=== PATIENT | female | born 1995 | race American Indian/Alaskan Native ===

== ENCOUNTER 2016-09-19 21:51 | Emergency (ER) | payer MEDICAID ==
[2016-09-20 00:45] LABS: Bilirubin,Urine NEG (Negative); Blood,Urine NEG (Negative); Ketones,Urine TR mg/dL (Negative); Leukocyte Esterase,Urine NEG (Negative); Mucus,Urine 3+ /HPF; Nitrite,Urine NEG (Negative); Protein,Urine <15 mg/dL mg/dL (Negative); RBC,Urine < 1.0 /HPF (0.0-6.0); Urobilinogen,Urine < 2.0 mg/dL (<2.0)
[2016-09-20] MEDS ORDERED: NACL 0.9% 1000 ML 1,000 ML IV ONE (01:09)
[2016-09-20] MEDS ORDERED: ZOFRAN IV ONE (01:09)
[2016-09-20] MEDS ORDERED: TYLENOL PO ONE (01:10)
--- NOTE | 2016-09-20 02:06 | Emergency Department Report ---
ED N/V/D HPI - General Chief complaint: Pain General Stated complaint: PREG 8WKS/VOMITING/BODY ACHES Time Seen by Provider: 09/20/16 00:35 Source: patient, family Mode of arrival: Ambulatory Limitations: No Limitations - History of Present Illness Initial comments: Patient here reports she is 8 weeks and she started having body aches unable to follow down. Nausea and vomiting. Patient stated that she had 1 diarrhea stool today. She last vomited 1 hour prior to coming to the emergency room for a total of 3 times today. Patient says she does not have an appetite and her body is a candidate 5 out of 10. She denies any fever or chills. Denies any abdominal or back pain. She said her muscles feel achy 5 out of 10. Reports nasal congestion and sore throat. Denies cough, shortness of breath or chest pain. No [id number] medication taken for pain but she went Diclegis for nausea. I'll remember if he ate anything unusual over the same as before she started having nausea. Similar episode since her . [facility] and she said she went on August 26, 2016 and had ultrasound and reported that her is normal. She denies any vaginal bleeding or discharge. She states that she got checked for STD with her first visit. She states she does not have any STD or any concerns for STD. Urinary burning, frequency or urgency. MD complaint: nausea, vomiting, diarrhea -: This morning Description of Vomiting: food contents Description of Diarrhea: other (loose) Associated Abdominal Pain: No Severity: moderate Pain Scale: 5 (body aches) Quality: aching Improves with: rest Worsens with: none Context: other (unknown) Associated Symptoms: myalgias, loss of appetite, nausea/vomiting. denies: chest pain, cough, diaphoresis, fever/chills, headaches, malaise, rash, dysuria , shortness of breath, syncope, weakness - Related Data Previous Rx's Medication Instructions Recorded Last Taken Type Acetaminophen [Non-Aspirin Pain 500 mg PO Q8H PRN #12 tablet 09/20/16 Unknown Rx Relief] Sodium Chloride [Saline Nasal 90 ml NS Q12H PRN #1 spray 09/20/16 Unknown Rx [place]] guaiFENesin [Mucinex] 600 mg PO Q12H #10 tab.er.12h 09/20/16 Unknown Rx Allergies Allergy/AdvReac Type Severity Reaction Status Date / Time No Known Allergies Allergy Unverified 09/19/16 22:22 ED Review of Systems ROS: Stated complaint: PREG 8WKS/VOMITING/BODY ACHES Other details as noted in HPI Comment: All other systems reviewed and negative Constitutional: denies: chills, fever Eyes: denies: eye pain ENT: throat pain, congestion. denies: ear pain Respiratory: denies: cough, shortness of breath, SOB with exertion, SOB at rest , stridor, wheezing Cardiovascular: denies: chest pain, palpitations, edema, syncope Gastrointestinal: nausea, vomiting, diarrhea. denies: abdominal pain, constipation Genitourinary: denies: urgency, dysuria, frequency, hematuria, discharge Musculoskeletal: myalgia. denies: back pain, arthralgia Skin: denies: rash Neurological: denies: headache, weakness, numbness, paresthesias, confusion, abnormal gait, vertigo ED Past Medical Hx - Past Medical History Previous Medical History?: No - Surgical History Past Surgical History?: No - Family History Family history: no significant - Social History Smoking Status: Never Smoker Substance Use Type: None - Medications Home Medications: Home Medications Medication Instructions Recorded Confirmed Last Taken Type Acetaminophen [Non-Aspirin Pain 500 mg PO Q8H PRN #12 tablet 09/20/16 Unknown Rx Relief] Sodium Chloride [Saline Nasal 90 ml NS Q12H PRN #1 spray 09/20/16 Unknown Rx [place]] guaiFENesin [Mucinex] 600 mg PO Q12H #10 tab.er.12h 09/20/16 Unknown Rx ED Physical Exam - General Limitations: No Limitations General appearance: alert, in no apparent distress - Head Head exam: Present: atraumatic, normocephalic, normal inspection - Eye Eye exam: Present: normal appearance, PERRL, EOMI. Absent: scleral icterus, conjunctival injection, periorbital swelling, periorbital tenderness Pupils: Present: normal accommodation - ENT ENT exam: Present: normal exam, normal orophraynx, mucous membranes moist, normal external ear exam, other (Bilateral nasal mucosa erythema and congestion with clear drainage. No frontal or maxillar sinus tenderness). Absent: TM's normal bilaterally (bilateral TM congestion without erythema) - Neck Neck exam: Present: normal inspection, tenderness, full ROM. Absent: meningismus, lymphadenopathy - Respiratory Respiratory exam: Present: normal lung sounds bilaterally. Absent: respiratory distress, wheezes, rales, rhonchi, stridor, chest wall tenderness - Cardiovascular Cardiovascular Exam: Present: normal rhythm, tachycardia, normal heart sounds - GI/Abdominal GI/Abdominal exam: Present: soft, normal bowel sounds. Absent: distended, tenderness, guarding, rebound, rigid - Extremities Exam Extremities exam: Present: normal inspection, full ROM, normal capillary refill. Absent: tenderness, pedal edema, joint swelling, calf tenderness - Back Exam Back exam: Present: normal inspection, full ROM. Absent: tenderness, CVA tenderness (R), CVA tenderness (L), muscle spasm, paraspinal tenderness, vertebral tenderness, rash noted - Neurological Exam Neurological exam: Present: alert, oriented X3, normal gait, reflexes normal. Absent: motor sensory deficit - Psychiatric Psychiatric exam: Present: normal affect, normal mood - Skin Skin exam: Present: warm, dry, intact, normal color. Absent: rash ED Course Vital Signs 09/19/16 09/20/16 09/20/16 22:22 01:31 02:37 Temperature 99.6 F 98.2 F Pulse Rate 102 H 102 H Respiratory 16 18 20 Rate Blood Pressure 121/80 Blood Pressure 106/70 [Left] O2 Sat by Pulse 99 100 Oximetry 09/20/16 02:57 Temperature Pulse Rate 94 H Respiratory Rate Blood Pressure Blood Pressure [Left] O2 Sat by Pulse Oximetry - Reevaluation(s) Reevaluation #1: 09/20/16 02:31 1 liter IV fluid in emergency room for nausea vomiting and diarrhea. No episode of vomiting or diarrhea in the emergency room. Se was given Zofran 4 mg IV for nausea and Tylenol 650 mg by mouth for low-grade fever. oral challenge in the emergency room and tolerated 3 cups of apple juice without any nausea or vomiting. Reports that she is feeling better. ED Medical Decision Making - Lab Data Lab Results 09/20/16 Range/Units 00:10 Urine Color Yellow (Yellow) Urine Turbidity Clear (Clear) Urine pH 6.0 (5.0-7.0) Ur Specific [place] 1.023 (1.003-1.030) Urine Protein <15 mg/dl (Negative) mg/dL Urine Glucose (UA) Neg (Negative) mg/dL Urine Ketones Tr (Negative) mg/dL Urine Blood Neg (Negative) Urine Nitrite Neg (Negative) Urine Bilirubin Neg (Negative) Urine Urobilinogen < 2.0 (<2.0) mg/dL Ur Leukocyte Esterase Neg (Negative) Urine WBC (Auto) 2.0 (0.0-6.0) /HPF Urine RBC (Auto) < 1.0 (0.0-6.0) /HPF U Epithel Cells (Auto) 2.0 (0-13.0) /HPF Urine Mucus 3+ /HPF Urine HCG, Qual Positive A (Negative) Strep test negative and cultures are pending - Medical Decision Making ED Course: Patient instructed that her urine test was stable except for mild dehydration. Positive and strep test is negative .Patient here for nausea vomiting and diarrhea that started this morning .She Reports that she is 8 weeks and she has been followed at [facility]. She said her last ultrasound was in August 2016 and everything was fine with the baby. She received 1 liter IV fluid in emergency room for nausea vomiting and diarrhea. No episode of vomiting or diarrhea in the emergency room. Se was given Zofran 4 mg IV for nausea and Tylenol 650 mg by mouth for low-grade fever. She was oral challenge in the emergency room and tolerated 3 cups of apple juice without any nausea or vomiting. Reports that she is feeling better. I instructed her that she needs to call her [facility] clinic to let them know that she was in the emergency room on follow up with her [facility] in 1 days. Instructed to obtain sure she drinks plenty of fluid to prevent from getting dehydrated and she can take Tylenol plain 3 times a day to keep fever down and to help for body ache. I discussed with patient that she can use Mucinex for nasal congestion and distress her nose with saline nasal spray twice a day. She does understand the discharge instruction and discharged home in stable condition to follow up with her [facility] doctor. Critical care attestation.: If time is entered above; I have spent that time in minutes in the direct care of this critically ill patient, excluding procedure time. ED Disposition Clinical Impression: Nausea and vomiting during , Acute diarrhea, Viral syndrome, Body aches Acute pharyngitis Qualifiers: Pharyngitis/tonsillitis etiology: unspecified etiology Qualified Code(s): J02.9 - Acute pharyngitis, unspecified Disposition: DISCHARGED TO HOME OR SELFCARE Is pt being admited?: No Does the pt Need Aspirin: No Condition: Stable Instructions: Pharyngitis (ED), Acute Nausea and Vomiting (ED), Acute Diarrhea (ED), Viral Syndrome (ED), Nutrition Tips for Relief of Diarrhea (ED) Additional Instructions: Call [facility] clinic this morning and schedule an appointment for follow-up visit in 1 day. Continue to take Diclegis as ordered by her [facility] for nausea If you develop abdominal pain, back pain, vaginal bleeding or discharge return to the emergency room immediately. Increase her fluid intake to 2-3 L of fluid per day. Prescriptions: Acetaminophen [Non-Aspirin Pain Relief] 500 mg PO Q8H PRN #12 tablet PRN Reason: Fever and body aches guaiFENesin [Mucinex] 600 mg PO Q12H #10 tab.er.12h Sodium Chloride [Saline Nasal [place]] 90 ml NS Q12H PRN #1 spray PRN Reason: Congestion Referrals: Your, [facility] [Other] - 09/21/16 Forms: Accompanied Note, Work/School Release Form(ED)
[2016-09-20 02:38] VITALS: BP 106/70
== END 2016-09-20 02:59 | disposition home or self-care (01) ==
LOC: ED 21:51
DX: O98.911 Unspecified maternal infectious and parasitic disease complicating pregnancy, first trimester (principal); R19.7 Diarrhea, unspecified; O21.0 Mild hyperemesis gravidarum; B89 Unspecified parasitic disease; B34.9 Viral infection, unspecified; M79.1 Myalgia; J02.9 Acute pharyngitis, unspecified; Z3A.08 8 weeks gestation of pregnancy
CPT/HCPCS: 81001; 81025; 87116; 87430; 96361; 96374; 99283; J2405; J7030

== ENCOUNTER 2018-10-29 18:26 | Emergency (ER) | payer MEDICAID ==
[2018-10-29 19:49] LABS: Basophils % (Auto) 0.7 % (0.0-1.8); Hematocrit 37.3 % (30.3-42.9); Hemoglobin 12.7 gm/dl (10.1-14.3); Lymphocytes # (Auto) 0.6 K/mm3 (1.2-5.4); Lymphocytes % (Auto) 10.6 % (13.4-35.0); Mean Corpuscular HGB Conc 34 % (30-34); Mean Corpuscular Volume 88 fl (79-97); Monocytes # (Auto) 0.5 K/mm3 (0.0-0.8); Monocytes % (Auto) 8.3 % (0.0-7.3); Platelet Count 251 K/mm3 (140-440); Red Blood Count 4.24 M/mm3 (3.65-5.03); Red Cell Distribution Width 13.9 % (13.2-15.2)
[2018-10-29 20:05] LABS: Alanine Aminotransferase 34 units/L (7-56); Albumin 4.5 g/dL (3.9-5); BUN/Creatinine Ratio 16; Blood Urea Nitrogen 14 mg/dL (7-17); Calcium 8.8 mg/dL (8.4-10.2); Hemolysis Index 11
[2018-10-29] MEDS ORDERED: ZOFRAN IV ONE (20:31)
[2018-10-29] MEDS ORDERED: NACL 0.9% 1000 ML 1,000 ML IV ONE ×2 (20:31)
[2018-10-29] MEDS ORDERED: LOMOTIL PO ONE (20:31)
--- NOTE | 2018-10-29 20:36 | Emergency Department Report ---
HPI - General Chief Complaint: Nausea/Vomiting/Diarrhea Time Seen by Provider: 10/29/18 20:21 - HPI HPI: Room 22 The patient is a 23-year-old female presented with a chief complaint of nausea vomiting and diarrhea. The patient states her daughter who is one years of this suffered from nausea vomiting and diarrhea for the past 2 days. The patient sta haley last night she developed nausea and vomiting and diarrhea herself. Patient describes the diarrhea is watery green in color. Patient denies history of fever or recent antibiotic use. Patient states she has some abdominal pain yesterday but none today. The patient states her last meal before her symptoms included chicken tenderness, fries, coleslaw from [employer]. Location: [See above] Duration: [See above] Quality: [See above] Severity: [See above] Modifying factors: [see above] Context: [see above] Mode of transportation: [not driving] ED Past Medical Hx - Past Medical History Previous Medical History?: No Additional medical history: PCOS - Surgical History Past Surgical History?: No - Family History Family history: no significant - Social History Smoking Status: Never Smoker Substance Use Type: None (denies illicit drug use), Alcohol (occasional) - Medications Home Medications: Home Medications Medication Instructions Recorded Confirmed Last Taken Type Acetaminophen [Non-Aspirin Pain 500 mg PO Q8H PRN #12 tablet 09/20/16 Unknown Rx Relief] Sodium Chloride [Saline Nasal 90 ml NS Q12H PRN #1 spray 09/20/16 Unknown Rx [place]] guaiFENesin [Mucinex] 600 mg PO Q12H #10 tab.er.12h 09/20/16 Unknown Rx Diphenoxylate/Atropine [Lomotil] 2 tab PO QID PRN #20 tablet 10/29/18 Unknown Rx HYDROcodone/APAP 5-325 [[place] 1 - 2 each PO Q6HR PRN #5 tablet 10/29/18 Unknown Rx 5/325] Ondansetron [Zofran ODT TAB] 8 mg PO Q8HR #20 tab.rapdis 10/29/18 Unknown Rx ED Review of Systems ROS: Stated complaint: VOMITING/DIARRHEA Other details as noted in HPI Constitutional: denies: fever Eyes: denies: eye pain ENT: denies: throat pain Respiratory: no symptoms reported Cardiovascular: denies: chest pain Endocrine: no symptoms reported Gastrointestinal: nausea, vomiting, diarrhea. denies: abdominal pain Genitourinary: denies: dysuria Musculoskeletal: denies: back pain Neurological: denies: headache Physical Exam - Physical Exam Vital Signs: Vital Signs 10/29/18 18:42 Temperature 98.8 F Pulse Rate 114 H Respiratory 20 Rate Blood Pressure 120/63 O2 Sat by Pulse 95 Oximetry Physical Exam: GENERAL: The patient is well-developed well-nourished female lying on stretcher not appearing to be in acute distress. [] HEENT: Normocephalic. Atraumatic. Extraocular motions are intact. Patient has moist mucous membranes. NECK: Supple. Trachea midline CHEST/LUNGS: Clear to auscultation. There is no respiratory distress noted. HEART/CARDIOVASCULAR: Regular. There is tachycardia. There is no gallop rub or murmur. ABDOMEN: Abdomen is soft, nontender. Patient has normal bowel sounds. There is no abdominal distention. SKIN: There is no rash. There is no edema. There is no diaphoresis. NEURO: The patient is awake, alert, and oriented. The patient is cooperative. The patient has normal speech MUSCULOSKELETAL: There is no evidence of acute injury. ED Course Vital Signs 10/29/18 18:42 Temperature 98.8 F Pulse Rate 114 H Respiratory 20 Rate Blood Pressure 120/63 O2 Sat by Pulse 95 Oximetry - Reevaluation(s) Reevaluation #1: 10/29/18 22:29 Patient states she is feeling improved and her nausea is resolved. Reevaluation #2: 10/29/18 22:43 Patient tolerating po ED Medical Decision Making - Lab Data Result diagrams: 10/29/18 19:21 10/29/18 19:21 Laboratory Tests 10/29/18 10/29/18 10/29/18 19:21 19:21 19:21 WBC 5.9 RBC 4.24 Hgb 12.7 Hct 37.3 MCV 88 MCH 30 MCHC 34 RDW 13.9 Plt Count 251 Lymph % (Auto) 10.6 L [place] % (Auto) 8.3 H Eos % (Auto) 0.0 Baso % (Auto) 0.7 Lymph # 0.6 L [place] # 0.5 Eos # 0.0 Baso # 0.0 Seg Neutrophils % 80.4 H Seg Neutrophils # 4.8 Sodium 139 Potassium 3.9 Chloride 99.7 Carbon Dioxide 26 Anion Gap 17 BUN 14 Creatinine 0.9 Estimated GFR > 60 BUN/Creatinine Ratio 16 Glucose 119 H Calcium 8.8 Total Bilirubin 0.60 AST 23 ALT 34 Alkaline Phosphatase 82 Total Protein 8.0 Albumin 4.5 Albumin/Globulin Ratio 1.3 Lipase 13 Urine Color Urine Turbidity Urine pH Ur Specific [place] Urine Protein Urine Glucose (UA) Urine Ketones Urine Blood Urine Nitrite Ur Reducing Substances Urine Bilirubin Urine Ictotest Urine Urobilinogen Ur Leukocyte Esterase Urine WBC (Auto) Urine RBC (Auto) U Epithel Cells (Auto) Urine Bacteria (Auto) Urine Mucus Urine HCG, Qual 10/29/18 21:30 WBC RBC Hgb Hct MCV MCH MCHC RDW Plt Count Lymph % (Auto) [place] % (Auto) Eos % (Auto) Baso % (Auto) Lymph # [place] # Eos # Baso # Seg Neutrophils % Seg Neutrophils # Sodium Potassium Chloride Carbon Dioxide Anion Gap BUN Creatinine Estimated GFR BUN/Creatinine Ratio Glucose Calcium Total Bilirubin AST ALT Alkaline Phosphatase Total Protein Albumin Albumin/Globulin Ratio Lipase Urine Color Yellow Urine Turbidity Slightly-cloudy Urine pH 5.0 Ur Specific [place] 1.031 H Urine Protein 30 mg/dl Urine Glucose (UA) Neg Urine Ketones 20 Urine Blood Neg Urine Nitrite Neg Ur Reducing Substances Not Reportable Urine Bilirubin Neg Urine Ictotest Not Reportable Urine Urobilinogen < 2.0 Ur Leukocyte Esterase Neg Urine WBC (Auto) 3.0 Urine RBC (Auto) 3.0 U Epithel Cells (Auto) 3.0 Urine Bacteria (Auto) 1+ Urine Mucus 2+ Urine HCG, Qual Negative - Differential Diagnosis gastroenteritis, pancreatitis, Critical care attestation.: If time is entered above; I have spent that time in minutes in the direct care of this critically ill patient, excluding procedure time. ED Disposition Clinical Impression: Acute gastroenteritis, Dehydration Disposition: DC-01 TO HOME OR SELFCARE Is pt being admited?: No Does the pt Need Aspirin: No Condition: Stable Instructions: Gastroenteritis (ED) Additional Instructions: Return to the emergency department immediately should you develop worsening symptoms, fever, inability to tolerate food or liquid or any other concerns. Prescriptions: Diphenoxylate/Atropine [Lomotil] 2 tab PO QID PRN #20 tablet PRN Reason: Diarrhea HYDROcodone/APAP 5-325 [[place] 5/325] 1 - 2 each PO Q6HR PRN #5 tablet PRN Reason: Pain Ondansetron [Zofran ODT TAB] 8 mg PO Q8HR #20 tab.rapdis Referrals: NITHYA PATEL MD [Staff Physician] - 3-5 Days (Dr. Patel is a line walker. Please follow up with him for further evaluation) Time of Disposition: 22:46
[2018-10-29 22:08] LABS: HCG Qualitative,Urine Negative (Negative)
[2018-10-29 22:11] LABS: Bacteria,Urine 1+ /HPF (Negative); Bilirubin,Urine NEG (Negative); Blood,Urine NEG (Negative); Color,Urine Yellow (Yellow); Mucus,Urine 2+ /HPF; Urobilinogen,Urine < 2.0 mg/dL (<2.0)
[2018-10-29 22:55] VITALS: BP 111/74
== END 2018-10-29 23:25 | disposition home or self-care (01) ==
LOC: ED 18:26
DX: K52.9 Noninfective gastroenteritis and colitis, unspecified (principal); E86.0 Dehydration; R11.2 Nausea with vomiting, unspecified; Z79.899 Other long term (current) drug therapy
CPT/HCPCS: 36415; 80053; 81001; 81025; 83690; 85025; 96361; 96374; 99284; J2405; J7030